=== PATIENT | female | born 1995 | race Caucasian/White ===

== ENCOUNTER 2018-11-30 22:12 | Inpatient (IN) | payer OTHER ==
[~2018-11-30] VITALS: Ht 182.9 cm; Wt 92.0 kg
--- NOTE | 2018-11-30 22:16 | NUR ---
PT TO ROOM BY EMS. PT FOUND UNRESPONSIVE AT [facility], EMS STATES QUESTIONABLE ALLERGIC REACTION. BENADRYL AND EPI GIVEN TECHNICAL REP. AT THIS TIME, PT NON VERBAL, STARING AT CEILING, NO EYE CONTACT, VSS. PT INTERMITTENTLY FOLLOW COMMANDS. ASSESSMENT DONE. MD AT BEDSIDE.
--- NOTE | 2018-11-30 22:31 | NUR ---
CALLED [facility] SPOKE TO SARAH SHE HAS NEVER BEEN SEEN THERE CALLED [facility] SPOKE WITH THE [facility] THERE AND SHE WILL BE SENDING MEDICAL RECORDS
--- NOTE | 2018-11-30 22:33 | NUR ---
PT TO CT
--- NOTE | 2018-11-30 22:47 | NUR ---
PT RETURNED FROM CT. NO CHANGE IN CONDITION. VS UPDATED.
[2018-11-30 22:49] LABS: BASOPHILS # (AUTO) 0.06 x10^3/uL (0-0.1); BASOPHILS % (AUTO) 1 % (0-1); EOSINOPHILS # (AUTO) 0.15 x10^3/uL (0-0.4); EOSINOPHILS % (AUTO) 2 % (1-7); LYMPHOCYTES # (AUTO) 2.62 x10^3/uL (1-3.4); LYMPHOCYTES % (AUTO) 27 % (22-44); MD NO; MEAN CORPUSCULAR HEMOGLOBIN 28.9 pg (27.0-34.8); MEAN CORPUSCULAR HGB CONC 33.7 g/dL (32.4-35.8); MEAN CORPUSCULAR VOLUME 85.8 fL (80-100); MEAN PLATELET VOLUME 7.6 fL (7.4-10.4); MONOCYTES % (AUTO) 5 % (2-9); NEUTROPHILS # (AUTO) 6.43 x10^3/uL (1.8-6.8); NEUTROPHILS % (AUTO) 66 % (42-75); PLATELET COUNT 486 x10^3/uL (130-400); RED BLOOD COUNT 5.05 x10^6/uL (3.82-5.3); RED CELL DISTRIBUTION WIDTH 12.9 % (9.6-15.2)
[2018-11-30 22:59] LABS: ALBUMIN 4.4 g/dL (3.4-5.0); ANION GAP 7 mmol/L (5-15); CALCIUM 8.6 mg/dL (8.5-10.1); CHLORIDE 109 mmol/L (98-107)
[2018-11-30 23:00] LABS: SALICYLATE LEVEL < 1.7 mg/dL (2.8-20.0)
[2018-11-30 23:03] LABS: ALANINE AMINOTRANSFERASE 14 U/L (12-78); ALKALINE PHOSPHATASE 89 U/L (45-117); BILIRUBIN,TOTAL 0.9 mg/dL (0.2-1.0); CREATININE 0.93 mg/dL (0.55-1.02)
[2018-11-30 23:06] LABS: ACETAMINOPHEN < 2 mcg/mL (10-30)
--- NOTE | 2018-11-30 23:14 | NUR ---
REPORT RECEIVED FROM ASIF TIPTON
--- NOTE | 2018-11-30 23:16 | NUR ---
PT MOVED TO ROOM 40. REPORT TO ASIF BOWDEN.
--- NOTE | 2018-11-30 23:33 | NUR ---
PT HAS PEOPLE AT BEDSIDE THAT PT LIVES WITH. PER VISITORS, PT HAS A LESION ON C3 THAT HAS CAUSED DECREASED SENSATION AND MOBILITY IN BILATERAL LOWER EXTREMITIES. PT HAS BRACES IN PLACE. PER VISITORS, PT IS ABLE TO USE WALKER AND/OR WALK WITH FOREARM CRUTCHES. UPON ASSESSMENT PT IS NOT VERBAL, HOWEVER WILL SHAKE HER HEAD YES OR NO APPROPRIATELY. WHEN ASKED PT DENIES THAT SHE CAN FEEL SENTATION FROM NECK DOWN. 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 PT DENIES OVERDOSING OR TAKING ANY MEDICATIONS. UA OBTAINED FROM PATIENT'S INDWELLING CATHETER.
[2018-11-30 23:54] LABS: CULTURE INDICATED? YES; MICROSCOPIC INDICATED
[2018-11-30 23:59] LABS: AMPHETAMINE SCREEN, URINE Negative (Negative); BARBITURATE SCREEN, URINE Negative (Negative); BENZODIAZEPINE SCREEN, URINE Positive (Negative); CANNABINOID SCREEN, URINE Negative (Negative); COCAINE SCREEN, URINE Negative (Negative); METHADONE SCREEN, URINE Negative (Negative); OPIATE SCREEN, URINE Negative (Negative)
--- NOTE | 2018-12-01 00:25 | NUR ---
per pt's visitors, pt is experiencing autonomic dysreflexia. pt on cont spo2, bp, and phototypesetting equipment monitor, vss. dr. centeno made aware of visitors concerns.
--- NOTE | 2018-12-01 01:14 | NUR ---
Report rec at this time, lab is in the room to draw blood cultures then will give antibiotics.
[2018-12-01] MEDS ORDERED: CEFTRIAXONE PMX 1GM/50ML 50 ML ONE (01:21)
[2018-12-01] MEDS ORDERED: CEFTRIAXONE PMX 1GM/50ML 50 ML IV ONE (01:30)
--- NOTE | 2018-12-01 01:46 | NUR ---
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
--- NOTE | 2018-12-01 03:14 | NUR ---
RESTING QUIETLY, AWAIT ROOM ASSIGNEMENT
--- NOTE | 2018-12-01 03:20 | NUR ---
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 PT SPEAKING ONE TO TWO WORDS.
--- NOTE | 2018-12-01 03:30 | NUR ---
PT AWARE THAT ADMISSION HERE IS OUT OF NETWORK AND THAT CAN SIGNIFICANTLY INCREASE THE BILL. IS ABLE TO EXPRESS UNDERSTADNING OF THIS
--- NOTE | 2018-12-01 03:59 | NUR ---
TO ROOM AT THIS TIME, PT HAS PULLED OFF ALL MONITORING WELL HER OWN IV. PT ABLE TO SPEAK AT THIS TIME AND EXPRESSES HOW DIFFICULT HER LIFE IS BEING 23 AND "DYING", STATES THAT SHE GREW [place] IN [place] AND THAT HER FAMILY DON'T NOT GIVE A FUCK ABOUT HER. PT IS AWARE THAT SHE CAN STAY HERE IN THIS HOSPITAL AND AGAIN AWARE THAT SHE HAS THE CHOICE AND UNDERSTANDING GIVEN NOT MANY PEOPLE WOULD WANT TO BE HOSPITALIZED IN THE PLACE WHERE THEY WORK.
[2018-12-01 05:17] VITALS: BP 104/68
[2018-12-01] MEDS ORDERED: predniSONE 50MG TABLET PO ONE (06:00)
[2018-12-01 07:19] VITALS: BP 99/59
[2018-12-01] MEDS: ENOXAPARIN 40 MG/0.4 ML SQ SCH (09:00)
[2018-12-01] MEDS ORDERED: GABA-827 PO (12:33)
[2018-12-01] MEDS ORDERED: BACL-19 PO (12:33)
[2018-12-01] MEDS ORDERED: HYDR100C2 PO (12:33)
[2018-12-01] MEDS ORDERED: DIAZ10TA PO (12:33)
[2018-12-01] MEDS ORDERED: OXYB5TAB7 PO (12:33)
[2018-12-01] MEDS ORDERED: ARIP5TAB13 PO (12:33)
[2018-12-01] MEDS ORDERED: DULO30CA2 PO (12:33)
[2018-12-01 14:00] VITALS: BP 112/56
[2018-12-01] MEDS: BACLOFEN 10 MG TABLET PO SCH ×2 (16:12→21:39)
[2018-12-01] MEDS: GABAPENTIN 400 MG CAPSULE PO SCH ×2 (16:13→21:39)
[2018-12-01 18:32] VITALS: BP 126/76
[2018-12-01] MEDS ORDERED: DIPHENHYDRAMINE 50 MG/ML, 1ML IVPush ONE (19:00)
[2018-12-01 19:13] VITALS: BP 116/67
[2018-12-01] MEDS ORDERED: OXYBUTYNIN CHLORIDE 5 MG TABLET PO SCH (21:00)
[2018-12-01] MEDS ORDERED: DIAZEPAM 5 MG TABLET ONE (21:36)
[2018-12-01] MEDS: hydrOXyzine 50MG TABLET PO PRN (21:38)
[2018-12-01] MEDS: OXYBUTYNIN CHLORIDE 5 MG TABLET PO SCH (21:39)
[2018-12-01] MEDS: DIAZEPAM 10 MG TABLET PO SCH (21:39)
[2018-12-02] VITALS (7 sets, daily range): BP systolic 95–113; BP diastolic 55–73
[2018-12-02] MEDS ORDERED: CEFTRIAXONE PMX 1GM/50ML 50 ML IV SCH (01:00)
[2018-12-02 06:06] LABS: BASOPHILS # (AUTO) 0.03 x10^3/uL (0-0.1); BASOPHILS % (AUTO) 0 % (0-1); EOSINOPHILS # (AUTO) 0.14 x10^3/uL (0-0.4); EOSINOPHILS % (AUTO) 2 % (1-7); LYMPHOCYTES # (AUTO) 2.38 x10^3/uL (1-3.4); LYMPHOCYTES % (AUTO) 32 % (22-44); MD NO; MEAN CORPUSCULAR HEMOGLOBIN 28.4 pg (27.0-34.8); MEAN CORPUSCULAR HGB CONC 33.1 g/dL (32.4-35.8); MEAN CORPUSCULAR VOLUME 85.8 fL (80-100); MEAN PLATELET VOLUME 7.7 fL (7.4-10.4); MONOCYTES # (AUTO) 0.47 x10^3/uL (0.2-0.8); MONOCYTES % (AUTO) 6 % (2-9); NEUTROPHILS # (AUTO) 4.45 x10^3/uL (1.8-6.8); NEUTROPHILS % (AUTO) 60 % (42-75); PLATELET COUNT 400 x10^3/uL (130-400); RED BLOOD COUNT 4.42 x10^6/uL (3.82-5.3); RED CELL DISTRIBUTION WIDTH 13.1 % (9.6-15.2)
[2018-12-02 06:13] LABS: ANION GAP 7 mmol/L (5-15); C-REACTIVE PROTEIN, QUANT 0.09 mg/dL (0.02-0.49); CALCIUM 8.7 mg/dL (8.5-10.1); CHLORIDE 109 mmol/L (98-107); CREATININE 0.84 mg/dL (0.55-1.02)
[2018-12-02 08:54] LABS: HCT (SEDRATE) 37.9 % (34.6-47.8)
[2018-12-02] MEDS: ENOXAPARIN 40 MG/0.4 ML SQ SCH (09:00)
[2018-12-02] MEDS: ARIPIPRAZOLE 5 MG TABLET PO SCH (09:00)
[2018-12-02] MEDS: GABAPENTIN 400 MG CAPSULE PO SCH ×3 (09:46→22:59)
[2018-12-02] MEDS: BACLOFEN 10 MG TABLET PO SCH ×3 (09:46→23:00)
[2018-12-02] MEDS: DULOXETINE 30 MG CAPSULE.DR PO SCH (09:46)
[2018-12-02] MEDS ORDERED: VANCOMYCIN PER PHARMACY MC PRN (17:30)
[2018-12-02] MEDS ORDERED: PHARMACOKINETIC MONITORING MC PRN (17:30)
[2018-12-02] MEDS ORDERED: PHARMACOKINETIC CONSULTATION MC ONE (17:30)
[2018-12-02 17:39] LABS: MICROSCOPIC INDICATED
[2018-12-02 17:47] LABS: CULTURE INDICATED? YES
[2018-12-02] MEDS: VANCOMYCIN 1,800 MG in SODIUM CHLORIDE 0.9% 250 ML IV SCH (18:01)
[2018-12-02] MEDS: hydrOXyzine 50MG TABLET PO PRN (20:27)
[2018-12-02] MEDS: DIAZEPAM 10 MG TABLET PO SCH (21:00)
[2018-12-02] MEDS ORDERED: DIAZEPAM 5 MG TABLET ONE (22:56)
[2018-12-02] MEDS: OXYBUTYNIN CHLORIDE 5 MG TABLET PO SCH (22:59)
[2018-12-03 01:49] VITALS: BP 98/62
[2018-12-03] MEDS: VANCOMYCIN 1,800 MG in SODIUM CHLORIDE 0.9% 250 ML IV SCH (05:42)
[2018-12-03 05:58] LABS: BASOPHILS # (AUTO) 0.06 x10^3/uL (0-0.1); BASOPHILS % (AUTO) 1 % (0-1); EOSINOPHILS # (AUTO) 0.22 x10^3/uL (0-0.4); EOSINOPHILS % (AUTO) 3 % (1-7); LYMPHOCYTES # (AUTO) 1.92 x10^3/uL (1-3.4); LYMPHOCYTES % (AUTO) 23 % (22-44); MD NO; MEAN CORPUSCULAR HEMOGLOBIN 28.5 pg (27.0-34.8); MEAN CORPUSCULAR HGB CONC 33.2 g/dL (32.4-35.8); MEAN CORPUSCULAR VOLUME 85.9 fL (80-100); MEAN PLATELET VOLUME 7.7 fL (7.4-10.4); MONOCYTES # (AUTO) 0.39 x10^3/uL (0.2-0.8); MONOCYTES % (AUTO) 5 % (2-9); NEUTROPHILS # (AUTO) 5.96 x10^3/uL (1.8-6.8); NEUTROPHILS % (AUTO) 70 % (42-75); PLATELET COUNT 341 x10^3/uL (130-400); RED BLOOD COUNT 4.43 x10^6/uL (3.82-5.3); RED CELL DISTRIBUTION WIDTH 13.1 % (9.6-15.2)
[2018-12-03 06:03] LABS: ALBUMIN 3.7 g/dL (3.4-5.0); ANION GAP 7 mmol/L (5-15); CALCIUM 8.4 mg/dL (8.5-10.1); CHLORIDE 111 mmol/L (98-107); CREATININE 0.65 mg/dL (0.55-1.02)
[2018-12-03] MEDS: ARIPIPRAZOLE 5 MG TABLET PO SCH (09:00)
[2018-12-03] MEDS: ENOXAPARIN 40 MG/0.4 ML SQ SCH (09:00)
[2018-12-03 09:38] VITALS: BP 90/57
[2018-12-03 09:39] VITALS: BP_SYST 102; BP_SYST 97; BP_DIAS 67; BP_DIAS 71
[2018-12-03] MEDS: DULOXETINE 30 MG CAPSULE.DR PO SCH (09:52)
[2018-12-03] MEDS: GABAPENTIN 400 MG CAPSULE PO SCH (09:52)
[2018-12-03] MEDS: BACLOFEN 10 MG TABLET PO SCH (09:53)
== END 2018-12-03 12:30 | disposition left against medical advice (07) | DRG 690 ==
LOC: ED 12-01 02:00 → EDIP 12-01 02:18 → ED 12-01 03:04 → 4WST 12-01 05:20 → 3NE 12-01 11:33 → 4EST 12-02 20:57
PROVIDERS: ADMIT Family Medicine; ATTEND Family Medicine
PROC: 0T9B70Z Drainage of Bladder with Drainage Device, Via Natural or Artificial Opening (ICD-10-PCS; principal; 2018-11-30)
DX: N39.0 Urinary tract infection, site not specified (principal); G43.909 Migraine, unspecified, not intractable, without status migrainosus; F43.10 Post-traumatic stress disorder, unspecified; F32.9 Major depressive disorder, single episode, unspecified; F17.210 Nicotine dependence, cigarettes, uncomplicated; N31.9 Neuromuscular dysfunction of bladder, unspecified; D89.40 Mast cell activation, unspecified; Z53.21 Procedure and treatment not carried out due to patient leaving prior to being seen by health care provider
CPT/HCPCS: 36415; 70450; 71045; 80048; 80053; 80307; 80329; 81001; 82040; 83735; 84100; 85025; 85651; 86140; 87040; 87077; 87086; 87186; 93005; 93306; 99285; G0378; J0696; J3370; G0480; J1200; J7050; J7512